=== PATIENT | female | born 1980 | race Caucasian/White ===

== ENCOUNTER → 2016-12-15 | Outpatient (CLI) | payer OTHER ==
[2016-12-15 12:27] LABS: URINE APPEARANCE TURBID (CLEAR); URINE BILIRUBIN NEG (NEG); URINE COLOR DK YELLOW; URINE EPITHELIAL CELL AUTO >30 /lpf (0-5); URINE NITRITE NEG (NEG); URINE PH 5.5 (4.5-7.5); URINE SPECIFIC GRAVITY 1.031 (1.000-1.030); UROBILINOGEN NEG (NEG)
[2016-12-15 12:30] LABS: MANUAL MICROSCOPIC REQUIRED? NO; REVIEW REQ? NO
[2016-12-16 23:47] LABS: CHLAMYDIA TRACH RNA*** NOT DETECTED (NOT DETECTED); GC (NEIS GONORRHOEAE)RNA** NOT DETECTED (NOT DETECTED)
== END | disposition home or self-care (01) ==
LOC: C.LABSPEC 11:35
PROVIDERS: ATTEND Obstetrics & Gynecology
DX: O09.511 Supervision of elderly primigravida, first trimester (principal)

== ENCOUNTER → 2016-12-15 | Outpatient (CLI) | payer OTHER ==
[2016-12-15 10:28] LABS: BASO % 0.2 %; BASO ABS # 0.02 K/uL (0-0.2); COMPLETE YES; EOS % 0.1 %; IG% 0.1 %; LYMPH % 13.8 %; LYMPH ABS # 1.27 K/uL (1.2-3.4); MEAN CELL VOLUME 84.3 fL (80-100); MEAN CORPUSCULAR HEMOGLOBIN 29.2 pg (25-34); MEAN CORPUSCULAR HGB CONC 34.6 g/dl (32-36); MEAN PLATELET VOLUME 10.3 fL (7.4-10.4); MONO % 8.1 %; NEUT % 77.7 %; PLATELET COUNT 307 K/uL (130-400); RED BLOOD COUNT 4.39 M/uL (4.2-5.4); WHITE BLOOD COUNT 9.22 K/uL (4.8-10.8)
== END | disposition home or self-care (01) ==
LOC: C.LAB1850 09:19
PROVIDERS: ATTEND Obstetrics & Gynecology
DX: O09.511 Supervision of elderly primigravida, first trimester (principal)

== ENCOUNTER → 2017-02-03 | Outpatient (CLI) | payer OTHER ==
[2017-02-03 18:36] LABS: GTGD 50 Grams
== END | disposition home or self-care (01) ==
LOC: C.LAB1850 16:43
PROVIDERS: ATTEND Obstetrics & Gynecology
DX: O09.512 Supervision of elderly primigravida, second trimester (principal)

== ENCOUNTER → 2017-04-27 | Outpatient (CLI) | payer OTHER ==
[2017-04-27 17:17] LABS: HEMATOCRIT 31.6 % (37-47); HEMOGLOBIN 10.9 g/dL (12.0-16.0)
== END | disposition home or self-care (01) ==
LOC: C.LAB1850 16:43
PROVIDERS: ATTEND Obstetrics & Gynecology
DX: O09.513 Supervision of elderly primigravida, third trimester (principal); Z3A.00 Weeks of gestation of pregnancy not specified

== ENCOUNTER → 2017-06-23 | Outpatient (CLI) | payer OTHER | END | disposition home or self-care (01) | LOC: C.LABSPEC 17:57 | PROVIDERS: ATTEND Obstetrics & Gynecology | DX: O09.513 Supervision of elderly primigravida, third trimester (principal); Z3A.00 Weeks of gestation of pregnancy not specified ==

== ENCOUNTER 2017-07-18 04:00 | Inpatient (IN) | payer OTHER ==
[~2017-07-18] VITALS: Ht 154.9 cm; Wt 95.9 kg
[2017-07-18] MEDS ORDERED: LACTATED RINGER'S 1000ML 1,000 ML IV PRN (04:41)
[2017-07-18] MEDS ORDERED: PREN1TAB29 PO (05:00)
[2017-07-18 05:01] LABS: HEMOGLOBIN 12.9 g/dL (12.0-16.0); MEAN PLATELET VOLUME 10.8 fL (7.4-10.4); PLATELET COUNT 178 K/uL (130-400); RED CELL DISTRIBUTION WIDTH CV 13.5 % (11.5-14.5); RED CELL DISTRIBUTION WIDTH SD 41.6 fL (36.4-46.3); WHITE BLOOD COUNT 7.28 K/uL (4.8-10.8)
[2017-07-18 05:03] VITALS: Ht 154.9 cm; Wt 95.9 kg
[2017-07-18 05:05] LABS: MEAN CORPUSCULAR HGB CONC 34.9 g/dl (32-36)
[2017-07-18] MEDS ORDERED: EpHEDrine SULFATE INJ 50 MG/ML AMP ONE (05:16)
[2017-07-18] MEDS ORDERED: BUPIVACAINE 0.25% 30 ML VIAL ONE (05:16)
[2017-07-18] MEDS ORDERED: FENTANYL CITRATE INJ 50 MCG/1 ML 2 ML VIAL ONE ×2 (05:17→16:13)
[2017-07-18] MEDS ORDERED: FENTANYL 2MCG/ML ROPIV 1.25MG/ML 100ML BAG ONE (05:18)
[2017-07-18] MEDS ORDERED: LACTATED RINGER'S 1000ML 500 ML IV PRN ×2 (06:18→06:52)
[2017-07-18] MEDS ORDERED: NALOXONE HCL INJ 1 MG in SODIUM CHLORIDE 0.9% 1000ML 1,000 ML IV PRN (06:18)
[2017-07-18] MEDS ORDERED: EpHEDrine SULFATE INJ 50 MG/ML AMP IV PRN (06:30)
[2017-07-18] MEDS ORDERED: ONDANSETRON INJ 2 MG/ML 2 ML VIAL IV PRN (06:30)
[2017-07-18] MEDS ORDERED: NALOXONE HCL INJ 0.4 MG/1 ML VIAL/CARP IV PRN (06:30)
[2017-07-18] MEDS ORDERED: NALBUPHINE HCL INJ 10 MG/ML AMP IV PRN (06:30)
[2017-07-18] MEDS: FENTANYL 2MCG/ML ROPIV 1.25MG/ML 100ML BAG EPI PRN ×3 (06:54→14:51)
[2017-07-18] MEDS ORDERED: OXYTOCIN 30 UNITS/500ML NSS IV PRN (07:00)
[2017-07-18] MEDS: LACTATED RINGER'S 1000ML 1,000 ML IV SCH ×2 (10:46→14:49)
[2017-07-18] MEDS ORDERED: LACTATED RINGER'S 1000ML 1,000 ML IV ONE (15:38)
[2017-07-18] MEDS ORDERED: CITRIC ACID/SODIUM CITRATE 15 ML UDC PO ONE (15:45)
[2017-07-18] MEDS: CEFAZOLIN IV 3,000 MG in SYRINGE 0 ML IV SCH ×2 (16:00→16:16)
[2017-07-18] MEDS ORDERED: LIDOCAINE/EPINEPHRINE 2% 1:200,000 20 ML SDV ONE (16:38)
[2017-07-18] MEDS ORDERED: ONDANSETRON INJ 2 MG/ML 2 ML VIAL ONE ×3 (16:38→17:36)
[2017-07-18] MEDS ORDERED: OXYTOCIN INJ 10 UNITS/ML VIAL ONE ×3 (16:38→17:37)
--- NOTE | 2017-07-18 16:44 | HISTORY & PHYSICAL EXAMINATION ---
DATE OF ADMISSION: 07/18/2017 PREOPERATIVE DIAGNOSES: 1. Intrauterine at 39-6/7 weeks. 2. Thin meconium. 3. Failure to descend. HISTORY OF PRESENT ILLNESS: Jessica is a 37-year-old 1, para 0, with an EDC of 07/19/2017 who presented to labor and delivery early in the wee hours of the morning on the 07/18/2017 with rupture of membranes. Thin meconium was noted. She was 4 cm dilated when she received an epidural anesthetic, and then, her contractions spaced out, and Pitocin augmentation was started. When I assumed care of the patient, I checked her at approximately 9 o'clock in the morning, and she was 6, 100, and -2. Pitocin was continued, and she progressed slowly to 8 and then complete. She was allowed to labor down for at least 45 minutes and then pushing was started. Pushing was started from 0 to +1 station. The patient pushed with excellent effort for 3+ hours. I intermittently pushed with the patient throughout the push. She was able to push the baby down to +2 station but never remained there, continued to slide back, and developed significantly more caput throughout despite excellent pushing effort on her part. For the last hour, the vertex really did not progress past +2 station despite excellent effort and my help with perineal massage and spacing. During the course of the pushing, the fetus had variables to the 80s-90s but with good return to baseline, but over the last hour of her 3+ hours push, the heart tones baseline increased to the 170s to 180s. Variability was minimal to moderate. Given all of this, the lack of progress over the last hour of pushing, and increasing heart rate baseline to the 180s, I offered the patient delivery for my concern for failure to descend. They consented to this. 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 This is her first . She denies abnormal Pap smears or sexually transmitted diseases. ALLERGIES: SULFA AND BENADRYL. MEDICATIONS: Include vitamin B6, vitamins, and Unisom as needed. PAST MEDICAL HISTORY: Significant for obesity. She has a history of a heart murmur but no SBE prophylaxis and chickenpox. She denies thyroid disease, asthma, heart disease, diabetes, kidney or liver problems. PAST SURGICAL HISTORY: Includes wisdom teeth removal and a growth removed from her groin. SOCIAL HISTORY: The patient denies tobacco, alcohol, or drugs throughout the . Lives with her spouse. She has no high risk behaviors. PHYSICAL EXAMINATION: GENERAL: This is a well-developed and well-nourished white female, in no acute distress. VITAL SIGNS: She is afebrile, and her vital signs are stable. GASTROINTESTINAL: Her abdomen is gravid and nontender. PELVIC: She has significantly swollen labia majora. The vertex descends to +2 station with significant caput. Tocodynamometer is antonio every 2-3 minutes with Pitocin at 9. An external monitor shows the fetus in the 180s with minimal variability and early with contractions. She did have variables with pushing. LABORATORY DATA: A positive, antibody negative, Pap normal, rubella immune, RPR nonreactive, hepatitis B negative, HIV negative, chlamydia and gonorrhea cultures negative, cystic fibrosis negative, SMA negative. Glucose tolerance test x2 normal. Normal panorama female. Negative MSAFP. Group B strep negative. ASSESSMENT: This is a 37-year-old 1, para 0 at 39-6/7 weeks with spontaneous rupture of membranes in the wee hours of the morning and thin meconium. She has pushed. She became complete, labored down for 45 minutes and pushed for 3+ hours, and the vertex has not descended lower than +2 station with significant formation of caput. I suspect cephalopelvic disproportion. I have offered the patient delivery, she is agreeable. The risks of the procedure were discussed with the patient including the risks of anesthesia, bleeding requiring transfusion, damage to surrounding structures including bowel, bladder, vessels, nerves, and ureters with need for further surgery, hospitalization, or intervention, the possible risk of infection, blood clot in the leg or lung, and then the risks involved with any surgery which include heart attack, stroke, or . Consent was reviewed and signed, and we will proceed with delivery.
[2017-07-18] MEDS ORDERED: MoRPHine SULFATE PF 1 MG/ML 10 ML AMP/VIAL ONE (16:49)
[2017-07-18] MEDS ORDERED: LACTATED RINGER'S 1000ML 1,000 ML IV SCH (17:24)
[2017-07-18] MEDS ORDERED: OXYTOCIN INJ 20 UNITS in LACTATED RINGER'S 1000ML 1,000 ML IV SCH (17:24)
--- NOTE | 2017-07-18 17:24 | [facility] Post Operative Brief Note ---
Immediate Operative Summary Operative Date July 18, 2017. Pre-Operative Diagnosis 39 6/7 Weeks Gestation; Primary Caesarean Section for Arrest of Descent; Moderate Meconium. Post-Operative Diagnosis Same as Preop Procedure(s) Performed Live Female at [address] Rubi Stock Controller Surgeon(s) PAYAM DE LA GARZA, BLAKE Estimated Blood Loss 700 ml Findings See Below VIABLE FEMALE IN OA, APGARS 9/9, WEIGHT 9#9.6OZ, NL UTX/TUBES/OVS Fluids (cc crystalloids) 1400CC Specimens Placenta (Exam) Cord Blood Arterial and Venous Cord Gases Drains None Anesthesia Type L&D Only EPID Exist Complication(s) none Disposition Accompanied Pt To Recover: yes Disposition: L&D
[2017-07-18] MEDS ORDERED: HYDROCORTISONE ACETATE 25 MG SUPP PR PRN (17:30)
[2017-07-18] MEDS ORDERED: OXYCODONE/ACETAMINOPHEN 5-325 TAB PO PRN ×2 (17:30)
[2017-07-18] MEDS ORDERED: KETOROLAC TROMETHAMINE 30 MG/ML VIAL IV. PRN ×2 (17:30→18:15)
[2017-07-18] MEDS ORDERED: MEPERIDINE HCL 50 MG/ML CARP IV PRN ×2 (17:30)
[2017-07-18] MEDS ORDERED: LANOLIN OINT EXT PRN (17:30)
[2017-07-18] MEDS ORDERED: SUPERCREAM 0.870 % 15GM JAR EXT PRN (17:30)
[2017-07-18] MEDS ORDERED: DIPHTHERIA/TETANUS/PERTUSSIS 0.5 ML SYR/VIAL IM. ONE (17:30)
[2017-07-18] MEDS ORDERED: DC PCA PRN (17:30)
[2017-07-18] MEDS ORDERED: BENZOCAINE 20% AER SPR 82.5 GM CAN EXT PRN (17:30)
[2017-07-18] MEDS ORDERED: DEXAMETHASONE SOD INJ 4 MG/ML VIAL ONE (17:37)
--- NOTE | 2017-07-18 18:10 | Anesthesiology Progress Note ---
Anesthesia Post Op Note Date & Time July 18, 2017 at 18:07 Vital Signs Pain Intensity: 0.0 Notes Mental Status: alert / awake / arousable, participated in evaluation Pt Amnestic to Procedure: Yes Nausea / Vomiting: adequately controlled Pain: adequately controlled Airway Patency, RR, SpO2: stable & adequate BP & HR: stable & adequate Hydration State: stable & adequate Neuraxial Anesthesia: was administered, sensory block is resolving Anesthetic Complications: no major complications apparent The patient is comfortable and doing well with no complaints. The Epidural catheter was removed in the OR at the end of the case with black tip intact.
[2017-07-18] MEDS ORDERED: CONTINUE MEDICATION ONE (18:15)
[2017-07-18] MEDS ORDERED: NO NARCOTICS OR SEDATIVES SCH (18:15)
[2017-07-18] MEDS ORDERED: MoRPHine SULFATE PF 1 MG/ML 10 ML AMP/VIAL EPI PRN (18:15)
[2017-07-18] MEDS ORDERED: MoRPHine SULFATE 4 MG/ML 1 ML CARP\\VIAL IV PRN (18:15)
[2017-07-18] MEDS ORDERED: MEPERIDINE HCL 25 MG/ML CARP IV PRN (18:15)
[2017-07-18] MEDS: DOCUSATE SODIUM 100 MG CAP PO SCH (19:28)
[2017-07-18 20:30] VITALS: BP 121/75; PULSE 77; TEMP 37; O2SAT 97
[2017-07-18] MEDS: SIMETHICONE 80 MG CHEW PO SCH (20:30)
[2017-07-18 21:30] VITALS: O2SAT 97
[2017-07-18 22:30] VITALS: O2SAT 96
--- NOTE | 2017-07-18 22:42 | OPERATIVE REPORT ---
DATE OF OPERATION: 07/18/2017 PREOPERATIVE DIAGNOSES: 1. Intrauterine at 39 and 6/7 weeks. 2. Thin meconium. 3. Failure to descend. POSTOPERATIVE DIAGNOSES: 1. Intrauterine at 39 and 6/7 weeks. 2. Thin meconium. 3. Failure to descend. PROCEDURES: 1. Epidural anesthesia. 2. Pitocin augmentation. 3. Primary low transverse section. SURGEON: Karol Rubi MD ANESTHESIA: Epidural. ESTIMATED BLOOD LOSS: 700 mL. FLUIDS: 1400 mL. URINE OUTPUT: 150 mL of concentrated urine drained from the bladder at the end of the procedure. INDICATIONS: Jessica is a 1, para 0 at 39-6/7 weeks who presented with rupture of membranes with thin meconium. She underwent an epidural anesthetic; had Pitocin augmentation and got to complete-complete and +1 station and pushed for over 3 hours without descent past +2 station. FINDINGS: Viable female in occiput anterior presentation, Apgars 9 and 9, weight 9 pounds 9.6 ounces. Normal uterus, tubes, and ovaries were noted bilaterally. COMPLICATIONS: None. DRAINS: Rneee. DISPOSITION: To recovery room in stable condition. DESCRIPTION OF PROCEDURE: The patient was taken to the operating room where she was identified verbally and by bracelet. She was transferred to the operating table, placed in the leftward tilt and prepped and draped in a normal sterile fashion. Her epidural anesthetic was found to be adequate. A Renee catheter had been placed in the room prior to coming back to the operating room. Time-out was held identifying correct patient, procedure, positioning, and preoperative antibiotics. A Pfannenstiel skin incision was made with the knife and taken down to the underlying layer of fascia with Bovie electrocautery. Bleeding was attended to with Bovie electrocautery. The fascia was incised in the midline with the cautery and taken out laterally with scissors. The superior edge of the fascial incision was grasped, elevated and the underlying layer of rectus muscle was taken off bluntly and with scissors. In a similar fashion, the inferior edge of the fascial incision was grasped, elevated and the underlying layer of rectus muscle was taken off bluntly and with scissors. The muscles were bluntly in the midline. The peritoneum was then bluntly entered and taken superiorly and inferiorly sharply with scissors with good visualization of the bladder. The incision was then stretched. The range operator's hand was then placed into the cavity to confirm no adhesions. The vesicouterine peritoneum was grasped with a snap, entered with scissors, and taken laterally. The bladder flap was created digitally. Hysterotomy incision was scored with the knife. It was entered with a snap. It was stretched with the range operator's fingers. After stretching with the range operator's fingers, the range operator's hand was placed into the uterus, palpating the anterior shoulder, which was manually lifted further back into the uterus. The range operator's hand was carefully placed into the uterus down and around the head. The head was gently lifted up into the incision and the baby was then delivered using fundal pressure. There was an immediate cry. Nose and mouth were bulb suctioned. Cord was clamped and cut and the infant was taken off to waiting regional refrigerated cdl truck driver for drying and attention. Cord blood and gases were obtained. Placenta was then manually extracted. The uterus was exteriorized and cleared of all clot and debris with moistened laparotomy sponges. The hysterotomy incision was identified by grasping the edges with a T clamp. Then, using 0 Vicryl in the first in a running locked layer and the second an imbricating layer, the hysterotomy incision was repaired. Some oozing at the right corner was repaired was attended to with 1 [id number] suture of 0 Vicryl. Hemostasis was then noted to be excellent in the incision. The posterior cul-de-sac was cleared of all clot and debris with irrigation. The hysterotomy incision was again inspected and found to be intact. The uterus was then reinteriorized. The hysterotomy incision was again inspected and found to be intact. The muscles were reapproximated in the midline using several interrupted sutures of 0 Vicryl. The rectus muscle was then examined and no active bleeding was noted. The fascia was reapproximated starting at the edges and meeting in the midline. The subcuticular tissue was copiously irrigated with warm normal saline. Bleeding was attended to with Bovie electrocautery. The skin was then closed with subcuticular stitch of 4-0 Vicryl. All sponge, lap, needle counts were correct x2. The patient tolerated the procedure well and was taken to recovery room in stable condition. I attest to the content of the Intraoperative Record and any orders documented therein. Any exceptions are noted below. [facility]
[2017-07-18 23:10] VITALS: BP 101/63; PULSE 76; TEMP 36.5; O2SAT 98
[2017-07-19] VITALS (14 sets, daily range): BP systolic 91–102; BP diastolic 56–64; PULSE 76–89; TEMP 36.5–37.2; O2SAT 95–99
[2017-07-19 06:06] LABS: HEMATOCRIT 32.1 % (37-47); IG# 0.08 K/uL (0.00-0.02); LYMPH % 5.5 %; LYMPH ABS # 0.93 K/uL (1.2-3.4); MEAN CELL VOLUME 86.5 fL (80-100); MEAN CORPUSCULAR HEMOGLOBIN 29.6 pg (25-34); MEAN CORPUSCULAR HGB CONC 34.3 g/dl (32-36); MONO % 4.6 %; MONO ABS # 0.78 K/uL (0.11-0.59); NEUT % 89.4 %; NEUT ABS # 15.05 K/uL (1.4-6.5); PLATELET COUNT 158 K/uL (130-400); RED CELL DISTRIBUTION WIDTH CV 13.5 % (11.5-14.5); RED CELL DISTRIBUTION WIDTH SD 42.2 fL (36.4-46.3); WHITE BLOOD COUNT 16.84 K/uL (4.8-10.8)
[2017-07-19] MEDS: SIMETHICONE 80 MG CHEW PO SCH ×4 (08:04→19:58)
[2017-07-19] MEDS: PRENATAL VITAMIN TAB PO SCH (08:05)
[2017-07-19] MEDS: DOCUSATE SODIUM 100 MG CAP PO SCH ×2 (08:10→19:58)
--- NOTE | 2017-07-19 09:15 | Progress Note ---
Subjective July 19, 2017. Subjective conversation w/ patient, physical exam, lab review Ambulation: limited ambulation Voiding: nicholson catheter in place Passing Gas: Yes Diet Tolerance: Clear Liquids Lochia: Small Feeding Type: Breast Feeding Pain: controlled Objective Vital Signs Date Time Temp Pulse Resp B/P (MAP) Pulse Ox O2 Delivery O2 Flow Rate FiO2 07/19/17 08:00 20 96 07/19/17 07:50 96 Room Air 07/19/17 07:50 37.0 76 20 99/60 (73) Room Air 07/19/17 07:00 20 97 07/19/17 06:00 18 98 07/19/17 05:05 16 97 07/19/17 04:00 16 98 07/19/17 03:10 18 99 07/19/17 03:10 36.5 80 18 102/63 (76) 99 Room Air 07/19/17 02:10 16 95 07/19/17 01:15 16 96 07/19/17 00:15 18 98 07/18/17 23:10 36.5 76 18 101/63 (76) 98 Room Air 07/18/17 23:10 18 98 07/18/17 23:10 98 Room Air 07/18/17 22:30 18 96 07/18/17 21:30 18 97 07/18/17 20:30 18 97 07/18/17 20:30 97 Room Air 07/18/17 20:30 37.0 77 18 121/75 (90) 97 Room Air Physical Exam General Appearance: WELL-APPEARING, WD/WN, NO APPARENT DISTRESS Abdomen: soft Fundus: Firm, Tender (appropriate for postop), Relation to Umbilicus (at u) Extremities: non-tender, normal inspection, + pedal edema (+1) Laboratory Results Last 24 Hours Test 07/19/17 05:56 White Blood Count 16.84 K/uL Red Blood Count 3.71 M/uL Hemoglobin 11.0 g/dL Hematocrit 32.1 % Mean Corpuscular Volume 86.5 fL Mean Corpuscular Hemoglobin 29.6 pg Mean Corpuscular Hemoglobin Concent 34.3 g/dl Platelet Count 158 K/uL Mean Platelet Volume 11.0 fL Neutrophils (%) (Auto) 89.4 % Lymphocytes (%) (Auto) 5.5 % Monocytes (%) (Auto) 4.6 % Eosinophils (%) (Auto) 0.0 % Basophils (%) (Auto) 0.0 % Neutrophils # (Auto) 15.05 K/uL Lymphocytes # (Auto) 0.93 K/uL Monocytes # (Auto) 0.78 K/uL Eosinophils # (Auto) 0.00 K/uL Basophils # (Auto) 0.00 K/uL RDW Standard Deviation 42.2 fL RDW Coefficient of Variation 13.5 % Immature Granulocyte % (Auto) 0.5 % Immature Granulocyte # (Auto) 0.08 K/uL Assessment and Plan Post-, Post-Op (1) Continue Routine Care: Doing well. Advance diet as tolerated. Nicholson out and void. Encourage ambulation. Routine care.
[2017-07-19] MEDS ORDERED: DC INTRASPINAL MORPHINE ONE (10:30)
[2017-07-19] MEDS: IBUPROFEN 600 MG TAB PO PRN ×2 (16:58→21:19)
[2017-07-20 06:02] LABS: HEMATOCRIT 29.3 % (37-47)
--- NOTE | 2017-07-20 06:22 | Progress Note ---
Subjective July 20, 2017. Subjective conversation w/ patient Ambulation: ambulating normally Voiding: no voiding problems Diet Tolerance: Regular Diet Lochia: Small Feeding Type: Breast Feeding Pain: /, localized to incision. Improved with analgesia Review of Systems Constitutional: No fever, No chills Respiratory: No shortness of breath Cardiac: No chest pain Abdomen: No nausea, No vomiting Objective Vital Signs Date Time Temp Pulse Resp B/P (MAP) Pulse Ox O2 Delivery O2 Flow Rate FiO2 07/19/17 23:35 37.2 85 18 99/64 (76) 97 Room Air 07/19/17 23:35 97 Room Air 07/19/17 15:30 37.1 89 20 100/62 (75) Room Air 07/19/17 15:30 Room Air 07/19/17 12:00 37.0 85 20 91/56 (68) 07/19/17 09:00 20 97 07/19/17 08:00 20 96 07/19/17 07:50 96 Room Air 07/19/17 07:50 37.0 76 20 99/60 (73) Room Air 07/19/17 07:00 20 97 Physical Exam General Appearance: WELL-APPEARING, WD/WN, NO APPARENT DISTRESS Respiratory/Chest: lungs clear, normal breath sounds Cardiovascular: regular rate, rhythm Abdomen: soft Fundus: Firm, Tender, Relation to Umbilicus (1 above u) Incision Description: Clean, Dry & Intact Extremities: no pedal edema, no calf tenderness Laboratory Results Last 24 Hours Test 07/20/17 05:49 Hemoglobin 10.0 g/dL Hematocrit 29.3 % Assessment and Plan Post-Op (2) Continue Routine Care: 37F s/p for failure to descend day 2 - A+, Rubella Immune, GBS -ve - pt doing well clinically - Vital signs reviewed and WNL - Hemoglobin reviewed. 11 -> 10 - continue to encourage ambulation today, and monitor and control pain - Encourage breast feeding Resident Physician Supervision Note: I interviewed and examined the patient. Discussed with Dr. Polk and agree with findings and plan as documented in the note. Any exceptions or clarifications are listed here: Doing well. Had some issues with breast feeding yesterday, so will see how that goes today. Documented By: Karol Rubi Resident Tracking Resident Involvement: Resident Care Provided Care Provided: OB Delivery
--- NOTE | 2017-07-20 06:29 | Discharge Instructions ---
Discharge Instructions Date of Service July 20, 2017. Admission Reason for Admission: LABOR Discharge Discharge Diagnosis / Problem: Discharge Goals Goal(s): Routine recovery after Medications Continue Dispensed Medications: supercream, dermaplast, tucks, lansinoh Activity Recommendations Activity Limitations: per Instructions/Follow-up section . Instructions / Follow-Up Instructions / Follow-Up ACTIVITY RECOMMENDATIONS: * Gradual return to full activity over the next 2-3 weeks. * No lifting - nothing heavier than baby over the next 2-3 weeks. * Do not engage in vigorous exercise, sexual activity or sports until cleared by your physician. * Do not drive or operate any motorized equipment until cleared by your physician. * You may shower/bathe daily. MEDICATIONS: For discomfort or pain, you may use Acetaminophen (Tylenol), Ibuprofen (Advil), or Naproxen (Aleve) following the package directions. For constipation you may use Colace following the package directions. BREAST CARE: If you are not breast feeding: * Wear a supportive bra 24 hours a day for one to two weeks. * Avoid stimulating your breasts and nipples as much as possible during the first few weeks after delivery. * When taking a shower, have the warm water hit your back, not breasts. * When your breasts feel full, apply ice packs. Usually three to four times a day helps ease the discomfort. * Take a mild pain medication (Tylenol / Motrin) when you are uncomfortable. If breast feeding: * Use breast milk to lubricate nipples. Lansinoh cream may be used for sore nipples. You do not need to remove cream prior to breast feeding. If using a different brand of cream, check the label for directions regarding removal of cream prior to nursing. * Wear a supportive bra. * If having problems with breasts or breast feeding, call a technical marketing consultant or your health care provider. SPECIAL CARE INSTRUCTIONS: When you are discharged from the hospital, it is important for you to follow the instructions listed below: * During the first week at home, you should be able to care for yourself and your baby. In addition, the usual light household activities are encouraged. * Limit your activities to the way you feel. Do not try to clean the house or move furniture. Be sensible. * If you actively engage in sports and have done so up until the time of your delivery, you may resume these activities as soon as you feel able. This may take up to one month or even longer. Use good judgment. * Continue to take your vitamins for at least six weeks after the of your baby. * Your diet need not be limited unless you were on a special diet before your delivery. Breast-feeding mothers need around 2500 calories per day and at least 64-80 ounces of fluid per day (8 to 10 glasses). * You should eat foods from the four major food groups. Crash diets or fad diets are to be avoided. Eating lean meats, fresh fruits and vegetables, low-fat dairy products, high fiber foods and a regular exercise program, will help you get back to your pre- weight without putting your health at risk. * Constipation is sometimes a problem after delivery. Take a mild laxative as needed. If breast feeding, Milk of Magnesia is acceptable to use. You may use a suppository or Fleets enema. * A daily shower or tub bath is suggested. Wash incision daily with warm soapy water and pat dry. It doesn't need to be covered unless drainage is present. * A bloody vaginal discharge will usually continue until around four weeks . A small amount of bleeding may continue for as long as six weeks. Vaginal discharge changes from the bright red bleeding after delivery to pink then brownish and finally yellowish-pink before becoming white and disappearing. * Bleeding may increase with activity. Your first period may come in 4-8 weeks. If you are breast feeding, your period may be delayed even longer. * Orlinda (sex) can begin whenever both you and your partner feel comfortable and do not have any form of genital infection. It is recommended that you wait at least six weeks for internal and external healing to occur. If you have questions, please talk to your health care practitioner. A condom should be used to prevent infection and . * Foreplay, gentle intercourse and lubrication is very important the first several times to prevent pain. A water-based lubricant such as K-Y jelly or Astroglide may be used. * If you have RH negative blood and your baby is RH positive, you will receive RHOGAM by injection prior to discharge. The nurse will give you a card to keep with you that has the date and place that you received RHOGAM after delivery. * During your care, you had a Rubella screen done to check for the presence of rubella antibodies in your blood. If your test was negative, you will receive a Rubella vaccine prior to discharge. This vaccine may cause a fever, soreness at the injection site and flu-like symptoms. If these symptoms persist, notify your health care practitioner. is not advised for one month after a Rubella vaccine. * Verbalizes understanding of car seat law as reviewed with patient nursing. * Car Seat hand-out given and reviewed with patient by nursing. * Shaken baby information reviewed with patient by nursing. Call you doctor if: * Heavy bleeding (saturating several pads an hour) or passing clots the size of your fist. * A fever >101 degrees F (38.3 degrees C) on two occasions four hours apart and /or chills. * Unusual pain in the pelvic or vaginal areas. * Call the doctor for any increased redness, drainage or swelling around the incision and any pain unrelieved by prescribed pain medication. * "Baby Blues" lasting longer than two weeks. If you have any questions or concerns, call your health care practitioner at . FOLLOW UP VISIT: * Please call the office at to schedule a 6 week examination. It is important you keep this appointment. It is important for you to make arrangements for either yearly or twice yearly check-ups thereafter. Current Hospital Diet Patient's current hospital diet: Regular OB Diet Discharge Diet Recommended Diet: Regular Diet Procedures Procedures Performed: Live Female Infant at 1642 Pending Studies Studies pending at discharge: no Medical Emergencies . Who to Call and When: Medical Emergencies: If at any time you feel your situation is an emergency, please call [phone] immediately. . Non-Emergent Contact Non-Emergency issues call your: Primary Care Provider . . "Provider Documentation" section prepared by Carlos Polk. .
[2017-07-20 06:55] VITALS: BP 108/71; PULSE 69; TEMP 37.1
[2017-07-20] MEDS: PRENATAL VITAMIN TAB PO SCH (08:21)
[2017-07-20] MEDS: IBUPROFEN 600 MG TAB PO PRN ×4 (08:21→23:16)
[2017-07-20] MEDS: DOCUSATE SODIUM 100 MG CAP PO SCH ×2 (08:21→19:40)
[2017-07-20] MEDS: SIMETHICONE 80 MG CHEW PO SCH ×4 (08:21→19:40)
[2017-07-20 15:40] VITALS: BP 111/70; PULSE 82; TEMP 37.4; O2SAT 95
[2017-07-21 00:50] VITALS: BP 106/67; PULSE 83; TEMP 36.7; O2SAT 98
--- NOTE | 2017-07-21 06:47 | Progress Note ---
Subjective July 21, 2017. Subjective conversation w/ patient Ambulation: ambulating normally Voiding: no voiding problems Diet Tolerance: Regular Diet Lochia: Small Feeding Type: Breast Feeding Pain: 4/10 pain reported, improved with analgesia Review of Systems Constitutional: No fever, No chills Respiratory: No shortness of breath Cardiac: No chest pain Abdomen: No nausea, No vomiting Objective Vital Signs Date Time Temp Pulse Resp B/P (MAP) Pulse Ox O2 Delivery O2 Flow Rate FiO2 07/21/17 00:50 98 Room Air 07/21/17 00:50 36.7 83 16 106/67 (80) 98 Room Air 07/20/17 15:40 37.4 82 16 111/70 (84) 95 Room Air 07/20/17 15:40 Room Air 07/20/17 08:05 Room Air 07/20/17 06:55 37.1 69 14 108/71 (83) Physical Exam General Appearance: WELL-APPEARING, WD/WN, NO APPARENT DISTRESS Respiratory/Chest: lungs clear, normal breath sounds Cardiovascular: regular rate, rhythm Abdomen: soft Fundus: Firm, Non-Tender, Relation to Umbilicus (1 above) Incision Description: Clean, Dry & Intact Extremities: no pedal edema, no calf tenderness, + pertinent finding (TEDs in place) Assessment and Plan Post-Op Day#: 3 Continue Routine Care: 37F s/p for failure to descend day 3 - A+, Rubella Immune, GBS -ve - pt doing well clinically - Vital signs reviewed and WNL - continue to work on breast feeding as pt was having difficulty yesterday - pt ready for d/c today, will review d/c instructions Resident Physician Supervision Note: I interviewed and examined the patient. Discussed with Dr. Gonzalez and agree with findings and plan as documented in the note. Any exceptions or clarifications are listed here: [None] Documented By: Willem Oh Resident Tracking Resident Involvement: Resident Care Provided Care Provided: OB Delivery
[2017-07-21 07:25] VITALS: BP 110/68; PULSE 70; TEMP 36.5
[2017-07-21] MEDS ORDERED: OXYC-57 PO (07:30)
[2017-07-21] MEDS ORDERED: MTR600X PO (07:30)
[2017-07-21] MEDS: DOCUSATE SODIUM 100 MG CAP PO SCH (08:05)
[2017-07-21] MEDS: PRENATAL VITAMIN TAB PO SCH (08:05)
[2017-07-21] MEDS: IBUPROFEN 600 MG TAB PO PRN ×2 (08:06→11:53)
[2017-07-21] MEDS: SIMETHICONE 80 MG CHEW PO SCH ×2 (08:06→11:53)
[2017-07-21 11:45] VITALS: BP_DIAS 68; PULSE 70; TEMP 36.5
== END 2017-07-21 12:15 | disposition home or self-care (01) | DRG 766 ==
LOC: C.OPB 04:00 → C.LD 04:02 → C.OPB 04:52 → C.OBG 20:22 → EDSTATUS 07-19 03:59
PROVIDERS: ADMIT Obstetrics & Gynecology; ATTEND Obstetrics & Gynecology
PROC: 10D00Z0 Extraction of Products of Conception, High, Open Approach (ICD-10-PCS; principal; 2017-07-18 15:52)
DX: O62.9 Abnormality of forces of labor, unspecified (principal); Z37.0 Single live birth; Z3A.39 39 weeks gestation of pregnancy

== ENCOUNTER → 2017-10-08 | Outpatient (CLI) | payer OTHER ==
[~2017-10-08] MED LIST: MTR600X PO; OXYC-57 PO; PREN1TAB29 PO
== END | disposition home or self-care (01) ==
LOC: C.LABBFT 14:42
PROVIDERS: ATTEND Internal Medicine
DX: R39.9 Unspecified symptoms and signs involving the genitourinary system (principal)

== ENCOUNTER 2021-12-16 07:23 | Inpatient (IN) ==
[2021-12-16] MEDS ORDERED: OXYTOCIN 30 UNITS/500ML NSS ONE (07:44)
[2021-12-16] MEDS ORDERED: LIDOCAINE 1% LOCAL 20 ML VIAL ONE (07:52)
[2021-12-16] MEDS ORDERED: LACTATED RINGER'S 1,000 ML IV PRN (08:02)
[2021-12-16] MEDS ORDERED: LIDOCAINE 1% LOCAL 20 ML VIAL INFIL PRN (08:02)
[2021-12-16] MEDS ORDERED: OXYTOCIN 30 UNITS/500 ML BAG IV PRN ×2 (08:02→08:12)
[2021-12-16] MEDS ORDERED: HYDROCORTISONE ACETATE 25 MG SUPP PR PRN (08:12)
[2021-12-16] MEDS ORDERED: DIPHTHERIA/TETANUS/PERTUSSIS 0.5 ML SYR/VIAL IM ONE (08:12)
[2021-12-16] MEDS ORDERED: ACETAMINOPHEN 325 MG TAB PO PRN (08:12)
[2021-12-16] MEDS ORDERED: bisacodyL 10 MG SUPP PR PRN (08:12)
[2021-12-16] MEDS ORDERED: BENZOCAINE 20% AER SPR 82.5 GM CAN EXT PRN (08:12)
[2021-12-16 09:05] LABS: Hematocrit (blood only) 32.7 % (34.1-44.9); Hemoglobin 10.9 g/dl (12.0-16.0); Mean Corpuscular Hemoglobin 28.6 pg (25.0-34.0); Mean Corpuscular Hgb Conc 33.3 g/dL (32.0-36.0); Mean Corpuscular Volume 85.8 fL (80.0-100.0); Mean Platelet Volume 11.3 fL (9.4-12.3); Platelet Count 201 K/uL (130-400); RDW Coefficient of Variation 13.4 % (11.5-14.5); RDW Standard Deviation 41.9 fL (36.4-46.3); Red Blood Count 3.81 M/uL (3.93-5.22); White Blood Count 16.51 K/ul (4.8-10.8)
[2021-12-16] MEDS ORDERED: SODIUM CHLORIDE 0.9% 250 ML IV PRN (09:08)
[2021-12-16] MEDS: IBUPROFEN 600 MG TAB PO PRN (09:49)
[2021-12-16] MEDS ORDERED: Flu Vaccine (Fluarix) 0.5mL SYR (Standard Dose) IM ONE (11:00)
--- NOTE | 2021-12-16 14:16 | Delivery Summary ---
DELIVERY NOTE: The patient delivered a live infant in left occiput anterior presentation. There was no nuchal cord. was a 32 weeks' gestation. Cord was clamped and cut and after delayed cord clamping handed over to the waiting pediatric team. The patient's weight and Apgars are in the pediatric record. Cord gases obtained. Cord blood was obtained. Placenta is spontaneously delivered. Inspection of the perineum showed a first degree laceration, which was repaired with Vicryl suture. Rectal exam post-repair showed good sphincter tone. No sutures are palpated in the rectum. Estimated blood loss was 400 mL. All instruments were removed from the vagina and accounted for x2 including sponges, needles, and retractors. The patient is sent to recovery in stable condition. Job ID: [id number] [facility]
[2021-12-16] MEDS: DOCUSATE SODIUM 100 MG CAP PO SCH (21:24)
[2021-12-17] MEDS: IBUPROFEN 600 MG TAB PO PRN (03:54)
[2021-12-17 07:11] LABS: Hematocrit (blood only) 30.3 % (34.1-44.9); Hemoglobin 10.2 g/dl (12.0-16.0); Mean Corpuscular Hgb Conc 33.7 g/dL (32.0-36.0); Mean Corpuscular Volume 86.1 fL (80.0-100.0); Mean Platelet Volume 10.9 fL (9.4-12.3); Platelet Count 190 K/uL (130-400); RDW Coefficient of Variation 13.5 % (11.5-14.5); RDW Standard Deviation 41.7 fL (36.4-46.3); Red Blood Count 3.52 M/uL (3.93-5.22); White Blood Count 11.76 K/ul (4.8-10.8)
[2021-12-17] MEDS ORDERED: PRENATAL VITAMIN 1 TAB PO SCH (08:00)
[2021-12-17] MEDS: DOCUSATE SODIUM 100 MG CAP PO SCH (08:29)
--- NOTE | 2021-12-17 08:49 | Obstetrical Progress Note ---
Date of Service December 17, 2021 Assessment & Plan Admission and Anticipated Discharge Date Admission Date: December 16, 2021 Subjective Patient is seen and examined. She feels well, no complaints. Ambulating without dizziness Voiding without difficulty Tolerating regular diet with out N&V Bleeding is minimal No fever/ chills/ CP/ SOB/ N&V/ Leg pain Pumping breast milk, baby is at C Vital Signs Temp Pulse Resp BP Pulse Ox O2 Del Method 12/17/21 08:25 36.6 C 73 16 107/72 Room Air 12/17/21 04:00 36.9 C 74 18 100/60 98 Room Air 12/16/21 23:30 36.9 C 80 18 103/60 97 Room Air PE: General: Alert, orientedx3, NAD Abd: soft, NT, fundus firm, below Umbilicus Perineum intact, Lochia rubra minimal Ext; NT, no edema AP: 41 yo s/p , ppd# 1 VSS Afebrile doing well Continue routine care All questions were answered Desires d/c today Discussed when to call Results & Data ([facility]) Vital Signs (Past 12 Hours) Vital Signs Temp Pulse Resp BP Pulse Ox O2 Del Method 12/17/21 08:25 36.6 C 73 16 107/72 Room Air 12/17/21 04:00 36.9 C 74 18 100/60 98 Room Air 12/16/21 23:30 36.9 C 80 18 103/60 97 Room Air
[2021-12-17] MEDS ORDERED: bisacodyL 5 MG TABEC PO SCH (20:00)
== END 2021-12-17 12:30 | disposition home or self-care (01) | DRG 807 ==
LOC: OPB 07:23 → 4S1 07:29 → 4E2 16:02